=== PATIENT | male | born 1985 | race Caucasian/White ===

== ENCOUNTER 2016-07-04 11:26 | Emergency (ER) | payer OTHER ==
[~2016-07-04] VITALS: Ht 180.3 cm; Wt 100.0 kg
[2016-07-04 11:29] VITALS: BP 114/71
[2016-07-04] MEDS ORDERED: ESCI20TA PO (11:40)
[2016-07-04] MEDS ORDERED: LIDOCAINE 1% (XYLOCAINE) 20 ML VIAL INJ ONE (11:40)
--- NOTE | 2016-07-04 11:43 | NUR ---
DR. GONSALES WITH PATIENT AND PREPARING TO INJECT LOCAL ANESTHETIC.
--- NOTE | 2016-07-04 11:45 | NUR ---
DR. GONSALES HAS INJECTED LOCAL ANESTHETIC AND NOW POSITIONS PATIENT AT SINK IN ROOM AND DIRECTS PT TO HOLD INJURED FINGER UNDER RUNNING TEPID WATER.
--- NOTE | 2016-07-04 11:55 | NUR ---
DR. GONSALES PREPARING TO SUTURE WOUND. PT SITTING AT EDGE OF BED AND TOLERATING WELL.
[2016-07-04] MEDS ORDERED: BACITRACIN OINTMENT 0.9 GM PACKET TOP ONE ×2 (12:04→13:15)
== END 2016-07-04 12:25 | disposition home or self-care (01) ==
LOC: EDUNIT# 11:26 → ED 11:31
DX: S61.214A Laceration without foreign body of right ring finger without damage to nail, initial encounter (principal); W22.09XA Striking against other stationary object, initial encounter; Y92.89 Other specified places as the place of occurrence of the external cause; Y99.0 Civilian activity done for income or pay
CPT/HCPCS: 12001; 99282; 99283

== ENCOUNTER → 2016-07-26 | Outpatient (CLI) | payer OTHER ==
[~2016-07-26] MED LIST: ESCI20TA PO
[2016-07-26 13:50] LABS: BASOPHILS % (AUTO) 0 % (0-2); EOSINOPHILS # (AUTO) 0.2 10^3uL; EOSINOPHILS % (AUTO) 2 % (0-4); LYMPHOCYTES # (AUTO) 1.5 X10^3; MEAN CORPUSCULAR HEMOGLOBIN 29.6 PG (26.0-34.0); MEAN CORPUSCULAR HGB CONC 34.3 g/dL (31.0-37.0); MEAN CORPUSCULAR VOLUME 86 FL (80-100); MEAN PLATELET VOLUME 9.9 FL (6.0-9.5); MONOCYTES # (AUTO) 1.2 X10^3; MONOCYTES % (AUTO) 13 % (3-11); NEUTROPHILS # (AUTO) 6.3 X10^3; NEUTROPHILS % (AUTO) 69 % (51-67); PLATELET COUNT 197 10^3uL (150-450); WHITE BLOOD COUNT 9.14 10^3uL (4.0-11.0)
[2016-07-26 16:23] LABS: ALBUMIN 4.2 g/dL (3.4-5.0); ALKALINE PHOSPHATASE 73 U/L (38-126); ANION GAP 14.2 MEQ/L (3-15); BUN/CREATININE RATIO 17 (10-20); CALCULATED IONIZED CALCIUM 4.1 mg/dL (3.8-4.6)
== END ==
LOC: LAB 13:40
PROVIDERS: ATTEND Family Medicine
DX: Z00.00 Encounter for general adult medical examination without abnormal findings (principal)
CPT/HCPCS: 36415; 80053; 83036; 84443; 85025